=== PATIENT | male | born 1950 | race Caucasian/White ===

== ENCOUNTER 2016-10-20 13:19 | Inpatient (IN) ==
[2016-10-20 14:15] LABS: MANUAL DIFF NEEDED? NO
[2016-10-20 14:20] LABS: BASO% 0.3 % (0.0-0.8); EOS# 0.18 X1000 (0.0-0.7); EOS% 1.5 % (0.0-10.0); HEMATOCRIT 46.2 % (42.0-52.0); HEMOGLOBIN 15.7 g/dL (14.0-18.0); IMM GRAN# 0.05 X1000 (0.0-0.04); IMM GRAN% 0.4 % (0.0-0.5); LYMPH% 9.8 % (20.5-51.1); MCH 31.2 PG (27-31); MCV 91.7 FL (81-99); MONO# 0.89 X1000 (0.11-0.59); MONO% 7.3 % (1.7-9.3); MPV 12.3 FL (7.4-10.4); NEUT% 80.7 % (42.2-75.2); PLT 174 X1000 (130-400); RBC 5.04 XMIL (4.7-6.1)
[2016-10-20 14:38] LABS: AGAP 11; ALBUMIN 3.9 g/dL (3.5-5.0); ALKALINE PHOSPHATASE 96 U/L (32-122); AMYLASE 65 U/L (20-200); BUN 16 mg/dL (8-22); CALCIUM 8.8 mg/dL (8.8-10.2); CHLORIDE 101 mmol/L (98-107); COSMO 273; GOT 14 U/L (10-34); GPT 9 U/L (10-44); LIPASE 67 U/L (13-60); POTASSIUM 4.2 mmol/L (3.5-5.1); SODIUM 136 mmol/L (136-145); TCO2 24 mmol/L (25-35); TOTAL BILIRUBIN 0.54 mg/dL (0.20-1.00); TOTAL PROTEIN 6.9 g/dL (6.3-8.3)
[2016-10-20] MEDS ORDERED: MORPHINE IV ONE (17:30)
[2016-10-20] MEDS ORDERED: ZOFRAN IV ONE (17:30)
[2016-10-20] MEDS ORDERED: NS 1,000 ML IV ONE (17:30)
[2016-10-20 17:44] LABS: INR 1.77; PROTIME 19.3 Seconds (9.2-11.7); PTT 38.3 Seconds (22.0-36.0)
--- NOTE | 2016-10-20 18:01 | PROVIDER DOCUMENTATION ---
This chart was entered by Rigo Fagan Scribe, acting as scribe for Stephany Gloria MD. HPI-Abdominal Pain/GI Problem - General Chief Complaint: Abdominal Pain Stated Complaint: ABD PAIN Time Seen by Provider: 10/20/16 16:54 Source: patient Allergies/Adverse Reactions: Patient Allergies Allergy/AdvReac Type Severity Reaction Status Date / Time No Known Allergies Allergy Verified 10/20/16 17:30 Home Medications: Home Medication List Medication Instructions Recorded Confirmed Last Taken Type Digoxin 250 mcg PO DAILY 01/27/16 10/20/16 01/27/16 History Levothyroxine [Synthroid] 125 microgm PO DAILY 01/27/16 10/20/16 01/27/16 History Metoprolol [Lopressor] 50 mg PO DAILY 01/27/16 10/20/16 01/27/16 History Warfarin [Coumadin] 5 mg PO QHS 01/27/16 10/20/16 10/19/16 History - History of Present Illness-ABD Nature of Presenting Problems: PT C/O EPIGASTRIC PAIN X 3DAYS. Abdominal Pain Onset Location: reports: epigastric Pain Radiation: reports: no radiation Quality of Pain: reports: sharp Severity in ED: reports: mild Onset/Duration: reports: 3 days ago Timing: reports: still present Activities at Onset: reports: none Exposure to sick contacts?: No Modifying Factors: improves with: nothing Associated Symptoms: reports: heartburn. denies: chest pain, cough, diarrhea, fever/chills, nausea, shortness of breath, syncope, vomiting, weakness Last BM: unsure Dark Stools Present?: reports: none noticed Rectal Bleeding: reports: none Rectal Pain: reports: none Emesis Description: reports: none Bruising or Bleeding Gums?: No Similar Symptoms Previously?: No Recently seen or treated by another doctor?: No Review of Systems - Adult - REVIEW OF SYSTEMS - ADULT Constitutional: denies: chills, fever, night sweats Eyes: denies: discharge, decreased vision, double vision Ears, Nose, Mouth & Throat: denies: ear pain, mouth/dental pain, throat pain, throat swelling Cardiovascular: denies: chest pain, irregular heart rate, palpitations Respiratory: denies: cough, shortness of breath, wheezing Gastrointestinal: reports: abdominal pain, frequent heartburn. denies: diarrhea , nausea, vomiting Genitourinary: denies: dysuria, flank pain, hematuria Musculoskeletal: denies: back pain, muscle aches, neck pain Integumentary: denies: hives, itching, rash Neurological: denies: dizziness/vertigo, headache/migraines, syncope Psychiatric: denies: anxiety, panic attacks, suicidal thoughts All Other Systems: Reviewed and Negative Past History - Adult - PAST MEDICAL HISTORY-ADULT Review of Records: reports: Nursing Assessment Review, Medications Reviewed Major Childhood Illnesses: reports: denies history Cardiovascular: reports: A-Fib Gastrointestinal: reports: pancreatitis - PRIOR SURGERIES/PROCEDURES Surgical/Procedure History: reports: none - IMMUNIZATION STATUS Childhood Immunizations: See Nurse Assessment Flu Vaccine: See Nurse Assessment - FAMILY HISTORY Family History: reviewed, not pertinent - SOCIAL HISTORY Smoking: chew Provider spent 3-5 mins advising pt. on dangers of tobacco.: Discussed manners to quit use, and f/u contacts for add'l counseling. Substance Use: none/never Alcohol Use Frequency: never Living Situation: family Physical Exam-General - PHYSICAL EXAM-ADULT Initial Vital Signs Reviewed: Yes - CONSTITUTIONAL General Appearance: appears well, alert, no apparent distress - EYES Eyes: PERRL/EOMI, pink conjunctivae - HEAD, EARS, NOSE, MOUTH & THROAT HENMT: normocephalic/atraumatic, moist mucous membranes, normal ENT inspection, TMs normal, pharynx normal - NECK Neck: non-tender, full range of motion, supple, normal inspection - RESPIRATORY Respiratory: chest non-tender, lungs clear, normal breath sounds, no pleuratic chest pain, no respiratory distress, no accessory muscle use - CARDIOVASCULAR Cardiovascular: normal peripheral pulses, regular rate, rhythm, no edema, no gallop, no JVD, no murmur - GASTROINTESTINAL (ABDOMEN) Abdominal Exam: normal bowel sounds, non tender, soft, no organomegaly, no pulsatile mass - LYMPHATIC Lymphatic: no adenopathy - MUSCULOSKELETAL Back Exam: normal inspection, no CVA tenderness, no vertebral tenderness Extremity: normal range of motion, non-tender, normal gait, normal inspection, no pedal edema, no calf tenderness, normal capillary refill - SKIN Integumentary: normal color, normal turgor, warm/dry - PSYCHIATRIC Psych/Mental Status: normal mood/affect, normal thought content, normal thought process, oriented x 3 Progress - PLAN OF CARE/RESULTS Progress/Plan/Lab Results: Vital Signs - 8 hr 10/20/16 13:39 Temperature 97.3 F L Pulse Rate 80 Respiratory Rate 18 Blood Pressure 158/97 O2 Sat by Pulse Oximetry 100 Laboratory Results - last 24 hr 10/20/16 10/20/16 13:46 13:46 WBC 12.20 H RBC 5.04 Hgb 15.7 Hct 46.2 MCV 91.7 MCH 31.2 H MCHC 34.0 RDW Std Deviation 14.5 Plt Count 174 MPV 12.3 H Immature Gran % (Auto) 0.4 Neut % (Auto) 80.7 H Lymph % (Auto) 9.8 L Branch % (Auto) 7.3 Eos % (Auto) 1.5 Baso % (Auto) 0.3 Immature Gran # (Auto) 0.05 H Neut # (Auto) 9.84 H Lymph # (Auto) 1.20 Branch # (Auto) 0.89 H Eos # (Auto) 0.18 Baso # (Auto) 0.04 Sodium 136 Potassium 4.2 Chloride 101 Carbon Dioxide 24 L Anion Gap 11 BUN 16 Creatinine 1.1 Estimated GFR/1.73 m2 > 60 BUN/Creatinine Ratio 15 Glucose 102 Calculated Osmolality 273 Calcium 8.8 Total Bilirubin 0.54 AST 14 ALT 9 L Alkaline Phosphatase 96 Total Protein 6.9 Albumin 3.9 Globulin 3.0 Albumin/Globulin Ratio 1.3 Amylase 65 Lipase 67 H Orders Category Date Time Status NPO Diet 10/20/16 13:41 Active ABDOMEN/PELVIS W/O CONTRAST [CT] Stat Exams 10/20/16 16:23 Ordered CHEST-PORTABLE [RAD] Stat Exams 10/20/16 17:04 Ordered AMYLASE [CHEM] Stat Lab 10/20/16 13:46 Completed CBC WITH ELECTRONIC DIFF [HEME] Stat Lab 10/20/16 13:46 Completed COMPREHENSIVE METABOLIC PANEL [CHEM] Stat Lab 10/20/16 13:46 Completed LIPASE [CHEM] Stat Lab 10/20/16 13:46 Completed PROTIME WITH INR [COAG] Stat Lab 10/20/16 17:04 Uncollected PTT [COAG] Stat Lab 10/20/16 17:04 Uncollected TROPONIN T Stat Lab 10/20/16 17:04 Uncollected Result Diagrams: 10/20/16 13:46 10/20/16 13:46 - CT/MRI 1 CT Study: Abdomen Impression: Abnormal - CONSULTS/PCP/HOSPITALIST Notification Time Discussed: 18:00 Reason/Comments: Admit to Dr. Pressley Consult Disposition: Admit - CHANGE OF SHIFT REPORT (ED Provider) Time of Transfer: 18:29 Items Pending: CT/MRI Results, Other (Dispo) Departure - Departure Time of Disposition Decision: 18:01 DIAGNOSIS: Acute pancreatitis Qualifiers: Pancreatitis type: unspecified pancreatitis type Acute pancreatitis complication: unspecified Qualified Code(s): K85.90 - Acute pancreatitis without necrosis or infection, unspecified Disposition: ADMITTED INPATIENT 09 Certified Medical Emergency: Emergent Condition: Stable Referrals and Follow-Ups: Raji Caro MD [Primary Care Provider] - - Critical Care Note This patient required my direct & personal management of CC.: No This chart was documented by the indicated scribe, (Rigo Fagan Scribe) and accurately reflects the services I performed and decisions made by me, Stephany Gloria MD, as attested by the provider's signature.
[2016-10-20] MEDS ORDERED: POTASSIUM CHLORIDE 10 MEQ in NS 1,000 ML IV SCH (19:22)
[2016-10-20] MEDS ORDERED: DILAUDID IV PRN (19:24)
[2016-10-20] MEDS ORDERED: ZOFRAN IV PRN (19:25)
--- NOTE | 2016-10-20 19:26 | Diag Imaging Result Document ---
PROCEDURE NAME: CHEST-2 VIEWS - 10/20/2016 CHEST, 2 VIEWS: FINDINGS: Compared with 01/27/2016. Heart size is in the upper range of normal. There is stable tortuosity of the thoracic aorta. The lungs appear clear. There is no pleural effusion or pneumothorax identified. There is thoracic spondylosis noted. IMPRESSION: No evidence of acute disease.
--- NOTE | 2016-10-20 20:49 | HISTORY AND PHYSICAL ---
HISTORY OF PRESENT ILLNESS: Mr. Mack is a 66-year-old, white gentleman who is admitted with severe abdominal pain. He came to the emergency room this afternoon with severe abdominal pain. It started actually 3 days ago while he was visiting his mother in [place]. This morning after he drove back from [place] to here, he was having more pain and he came straight to the emergency room. He did not have any vomiting. However, he has nausea. Prior to this, he had 3 attacks of acute pancreatitis. Last attack was in January when he was admitted. PAST SURGICAL HISTORY: Other details are regarding his history, he had cholecystectomy, he had thyroid surgery for multiple goiter. MEDICATIONS: He has been on Lopressor, he is on thyroid supplement. He is on Lanoxin as well as Coumadin. His INR is therapeutic at the present time. SOCIAL HISTORY: He denies history of alcohol intake. He chews tobacco and does not smoke. ALLERGIES: He does not have any allergies. PRIMARY CARE PHYSICIAN: He is a patient of Omayra Caro MD REVIEW OF SYSTEMS: Other than abdominal pain and some nausea, he denies having any other problems, including chest pain or shortness of breath. He has generalized weakness. PHYSICAL EXAMINATION: VITAL SIGNS: Temperature 97.3 degrees Fahrenheit, pulse 80 per minute, respiratory rate 18 per minute, blood pressure 158/97. HEENT: Head normocephalic. Pupils PERRLA. Fundus examination normal. Neck supple. JVP normal. ENT examination unremarkable. There is no evidence of lymphadenopathy, thyroid enlargement, pedal edema, calf tenderness, anemia, cyanosis or clubbing. Pedal pulses well felt. BREAST: Normal chest. Normal inspection. LUNGS: Clear on auscultation. PMI in the normal position. HEART: Sounds normal. Heart is irregularly irregular. There is no murmur, gallop or rub noted. ABDOMEN: Definitely tender in epigastric area. No guarding, rigidity, free fluid, masses or organomegaly. Bowel sounds normal. RECTAL: Deferred. POWER CRANE OPERATOR: Higher functions normal. Cranial nerves normal. Motor and sensory system examination unremarkable. Deep tendon reflexes normal. Plantars downgoing. Skull and spine examination normal for age. No cerebellar signs or signs of meningeal irritation. Locomotor exam and skin exam unremarkable. LABORATORY: His lipase is slightly elevated. White count is 12.2, hemoglobin 15.7, INR 1.77 lipases 67 which is slightly elevated. Amylase 65, which is normal. Troponin levels are negative. Liver enzymes are normal. Electrolytes are normal. Kidney function is normal also. CLINICAL IMPRESSION: Abdominal pain. Patient has an attack of acute pancreatitis. PLAN: To keep him on clear liquids and continue with the other management. cc: Zbigniew Pressley MD
[2016-10-20] MEDS: COUMADIN PO SCH (23:37)
[2016-10-20] MEDS: DILAUDID IV PRN (23:41)
[2016-10-21] MEDS ORDERED: MOTRIN PO ONE (08:22)
[2016-10-21] MEDS ORDERED: SODIUM CHLORIDE 0.9% INJ SCH (09:00)
--- NOTE | 2016-10-21 09:03 | Diag Imaging Result Document ---
PROCEDURE NAME: ABDOMEN/PELVIS W/O CONTRAST - 10/20/2016 CT UROGRAM WITHOUT CONTRAST: COMPARISON: The current study is compared with that of 01/27/2016. FINDINGS: There has been no significant change in the visualized portion of the chest. There is a densely calcified granuloma in the right costophrenic sulcus. There is a parapelvic cyst on the right. There is no evidence of nephrolithiasis or hydronephrosis. The appendix is normal in appearance. There is stranding in the fat surrounding the head of the pancreas and the duodenum. Compared to the previous study, this was previously more confined to the body and tail of the pancreas rather than the head. No appreciable inflammatory changes are seen in the distal pancreas on the current study. There are no focal masses or fluid collections demonstrated. The presence or absence of necrosis cannot be evaluated on this noncontrast study. There is no evidence of bowel obstruction. Otherwise, the appearance of the abdomen and pelvis have not changed significantly considering the lack of IV contrast. IMPRESSION: Pancreatitis in the head of the pancreas. This would appear to be fairly mild but again evaluation is limited due to the lack of contrast.
[2016-10-21] MEDS ORDERED: SODIUM CHLORIDE 0.9% 10 ML ONE (09:10)
--- NOTE | 2016-10-21 09:42 | PROGRESS NOTE ---
DATE: 10/21/2016 SUBJECTIVE: Interval history was reviewed. The patient was admitted yesterday after abdominal pain, coming back from [place], eating Mother's Day food. He was admitted for same in January of 2016 and diagnosed with idiopathic pancreatitis. It was thought the patient has the pancreatitis due to Zocor. He has been stopped and he was given Dilaudid. REVIEW OF SYSTEMS: Slight headache. No vision problem. Cardiopulmonary: No chest pain, shortness of breath, PND, orthopnea. GI: Abdominal pain localized. No radiation. No nausea. History of passing gas. : No history of hesitancy, frequency. Musculoskeletal: No swelling of feet. No joint pain. Neurologic: No focal symptoms. PAST MEDICAL HISTORY: Reviewed. MEDICATIONS: Reviewed. OBJECTIVE: Vital Signs: Afebrile, pulse is 80. He is 5 feet 6 inches, 206 pounds. Hemodynamics were stable. HEENT: Within normal limits. Neck: Supple. No lymphadenopathy. No goiter. Chest: Clear to auscultation. Heart: Sounds are regular. Abdomen: Belly is soft. Slightly tender in the epigastric area. Good bowel sounds. No signs of peritonitis. INVESTIGATIONS: Yesterday CBC, white cell count 12.2. INR 1.7. LFTs were normal. Lipase is slightly high. CT scan of the abdomen and pelvis will be reviewed. Chest x-ray, no evidence of acute disease. ASSESSMENT AND PLAN: 1. Acute pancreatitis, idiopathic. Previous IgG 4 levels were normal. Status post cholecystectomy. Stop Zocor. MRI of the pancreas is normal. Will follow up on CT scan of the abdomen and pelvis. Continue on clear liquids and repeat the amylase and lipase. 2. Hypothyroidism, on Synthroid. 3. Paroxysmal atrial fibrillation, in sinus. On metoprolol and warfarin and Lanoxin. 4. Repeat the labs in the morning. LEVEL OF DOCUMENTATION: 35 minutes. cc: James Caro MD
[2016-10-21] MEDS: SYNTHROID PO SCH (10:37)
[2016-10-21] MEDS: LANOXIN PO SCH (10:37)
[2016-10-21] MEDS: LOPRESSOR PO SCH (10:37)
[2016-10-21] MEDS: PROTONIX IV SCH (10:38)
[2016-10-21] MEDS: DILAUDID IV PRN (10:39)
[2016-10-21] MEDS: COUMADIN PO SCH (20:35)
[2016-10-22 06:50] LABS: HEMOGLOBIN A1C 5.4 % (4.8-6.0)
[2016-10-22 07:00] LABS: HEMOGLOBIN 15.1 g/dL (14.0-18.0); MCH 30.8 PG (27-31); MCHC 32.8 g/dL (33-37); MCV 93.7 FL (81-99); MPV 12.7 FL (7.4-10.4); RBC 4.91 XMIL (4.7-6.1)
[2016-10-22 07:01] LABS: AGAP 11; ALBUMIN 3.7 g/dL (3.5-5.0); ALKALINE PHOSPHATASE 88 U/L (32-122); AMYLASE 41 U/L (20-200); BUN 14 mg/dL (8-22); CALCIUM 9.3 mg/dL (8.8-10.2); CHLORIDE 102 mmol/L (98-107); COSMO 278; GOT 16 U/L (10-34); GPT 14 U/L (10-44); HDL 42 mg/dL (35-55); LDL 110 mg/dL; POTASSIUM 4.5 mmol/L (3.5-5.1); SODIUM 139 mmol/L (136-145); TCO2 26 mmol/L (25-35); TOTAL BILIRUBIN 0.68 mg/dL (0.20-1.00); TOTAL PROTEIN 6.7 g/dL (6.3-8.3); TRIGLYCERIDES 93 mg/dL (39-160); VLDL 19 mg/dL
[2016-10-22] MEDS: PROTONIX IV SCH (09:22)
[2016-10-22] MEDS: LANOXIN PO SCH (09:23)
[2016-10-22] MEDS: LOPRESSOR PO SCH (09:23)
[2016-10-22] MEDS: SYNTHROID PO SCH (09:23)
[2016-10-22 09:30] VITALS: BP 127/68
--- NOTE | 2016-10-22 19:00 | DISCHARGE SUMMARY ---
ADMISSION DATE: 10/20/2016 DISCHARGE DATE: 10/22/2016 DISCHARGING DIAGNOSIS: Abdominal pain due to idiopathic pancreatitis. SECONDARY DIAGNOSES: 1. Paroxysmal atrial fibrillation. 2. Hypothyroidism. 3. Hyperlipidemia off Zocor. BRIEF HISTORY: Please see the H and P that was done by Dr. Yung. In brief, this 63-year-old white gentleman was admitted to the hospital with abdominal pain after eating greasy foods. Patient has elevated lipase. CT of the abdomen without contrast consistent with pancreatitis at the head. He was treated symptomatically and his symptoms were much improved. Patient has been tolerating the diet very well. At the time of discharge labs as follows. CBC: White cell count 8.1, hematocrit 46, platelets 148,000. SMA 7 is normal. CRP was slightly high. LFTs were normal. Cholesterol 171, LDL is 110, HDL 42. Patient wants to go home. Initially, it was thought to be Zocor but he still is getting the attacks and IgG 4 levels were normal. Previous abdominal MRI is negative. The patient was discharged home in stable condition with the following instructions. Low-fat diet. Warfarin 5 mg daily, metoprolol 50 daily, Synthroid 125 daily, Lanoxin 250 mcg daily and Pancrease tablets as directed. Follow up in my office on Friday for the Coumadin checkup and maintenance care. cc: MD Paco Szymanski MD
== END 2016-10-22 10:49 | disposition home or self-care (01) ==
LOC: ED 13:19 → 3N 18:59
PROVIDERS: ADMIT Internal Medicine; ATTEND Internal Medicine